=== PATIENT | female | born 1955 | race Caucasian/White ===

== ENCOUNTER 2019-11-08 05:23 | Day surgery (SDC) | payer OTHER ==
[~2019-11-08] VITALS: Ht 162.6 cm; Wt 83.0 kg
[~2019-11-08 05:23] MED LIST: SODIUM CHLORIDE 0.9% 1,000 ML ONE
[2019-11-08] MEDS ORDERED: SODIUM CHLORIDE 0.9% 1,000 ML IV ONE (06:00)
[2019-11-08] MEDS ORDERED: ATOR10TA84 PO (07:00)
[2019-11-08] MEDS ORDERED: [UNRECOGNIZED DRUG - CODE] PO (07:00)
[2019-11-08] MEDS ORDERED: FentaNYL CITRATE-PF 100 MCG/2 ML VIAL ONE (07:19)
[2019-11-08] MEDS ORDERED: MIDAZOLAM HCL 2 MG/2 ML VIAL ONE (07:20)
[2019-11-08] MEDS ORDERED: MIDAZOLAM HCL 5 MG/ML VIAL ONE (07:20)
[2019-11-08] MEDS ORDERED: MethylPREDNISolone SOD SUCC 125 MG/2 ML VIAL IVP ONE (08:15)
[2019-11-08] MEDS ORDERED: MethylPREDNISolone SOD SUCC 125 MG/2 ML VIAL ONE (08:27)
[2019-11-08] MEDS ORDERED: OXYGEN THERAPY IH SCH (20:00)
== END 2019-11-08 09:25 | disposition home or self-care (01) ==
LOC: SURGERY 05:23
PROVIDERS: ATTEND Internal Medicine Critical Care Medicine
DX: R05 Cough (principal); R91.1 Solitary pulmonary nodule; R91.8 Other nonspecific abnormal finding of lung field; J34.89 Other specified disorders of nose and nasal sinuses; J98.8 Other specified respiratory disorders; E78.00 Pure hypercholesterolemia, unspecified; I10 Essential (primary) hypertension; J44.9 Chronic obstructive pulmonary disease, unspecified; Z79.899 Other long term (current) drug therapy; Z90.11 Acquired absence of right breast and nipple; Z96.641 Presence of right artificial hip joint; Z90.49 Acquired absence of other specified parts of digestive tract
CPT/HCPCS: 31623; 31624; 71045; 87070; 87101; 87206; 87220; J2250; J2930; J3010; J7030; 87015; 87205; 88112; 88312

== ENCOUNTER 2020-09-20 05:32 | Day surgery (SDC) | payer OTHER ==
[2020-09-19 12:56] LABS: COVID AG,FIA SOURCE NASOPHARYNGEAL
[~2020-09-20] VITALS: Ht 162.6 cm; Wt 80.9 kg
[~2020-09-20 05:32] MED LIST changes: +ATOR10TA84 PO; +PRIM250T3 PO; -SODIUM CHLORIDE 0.9% 1,000 ML ONE
[2020-09-20] MEDS ORDERED: BENZOCAINE 20% 50 MCG/SPRAY 57 GM TP ONE (05:33)
[2020-09-20] MEDS ORDERED: LIDOCAINE 4% 50 ML SOLUTION TP ONE (05:33)
[2020-09-20] MEDS ORDERED: LIDOCAINE 2% 30 ML JELLY TP ONE (05:33)
[2020-09-20] MEDS ORDERED: ALBUTEROL SULFATE 2.5 MG/0.5 ML NEB SOLUTION NEB ONE (05:33)
[2020-09-20] MEDS ORDERED: SODIUM CHLORIDE 0.9% 1,000 ML ONE (05:45)
[2020-09-20] MEDS ORDERED: PROM6.2514 PO (07:00)
[2020-09-20] MEDS ORDERED: AZIT-104 PO (07:00)
[2020-09-20] MEDS ORDERED: MONT-35 PO (07:00)
[2020-09-20] MEDS ORDERED: SODIUM CHLORIDE 0.9% 1,000 ML IV ONE (07:00)
[2020-09-20] MEDS ORDERED: IBUP-2071 PO (07:00)
[2020-09-20] MEDS ORDERED: PRED10 PO (07:00)
[2020-09-20] MEDS ORDERED: IPRA4AER IH (07:00)
[2020-09-20] MEDS ORDERED: FLUT1BLS IH (07:00)
[2020-09-20] MEDS ORDERED: CHOL500013 PO (07:00)
[2020-09-20] MEDS ORDERED: DOXY-354 PO (07:00)
[2020-09-20] MEDS ORDERED: OMEP20 PO (07:00)
[2020-09-20] MEDS ORDERED: ALBU8.5H8 IH (07:00)
[2020-09-20] MEDS ORDERED: FLUT16H NASAL (07:00)
[2020-09-20] MEDS ORDERED: MIDAZOLAM HCL 2 MG/2 ML VIAL ONE (07:43)
[2020-09-20] MEDS ORDERED: FentaNYL CITRATE PF 100 MCG/2 ML VIAL ONE (07:44)
[2020-09-20] MEDS ORDERED: MethylPREDNISolone SOD SUCC 125 MG/2 ML VIAL ONE (08:56)
[2020-09-20] MEDS ORDERED: MethylPREDNISolone SOD SUCC 125 MG/2 ML VIAL IVP ONE (09:00)
[2020-09-20] MEDS ORDERED: OXYGEN THERAPY IH SCH (20:00)
== END 2020-09-20 10:10 | disposition home or self-care (01) ==
LOC: SURGERY 05:32
PROVIDERS: ATTEND Internal Medicine Critical Care Medicine
DX: B37.0 Candidal stomatitis (principal); J38.4 Edema of larynx; F17.210 Nicotine dependence, cigarettes, uncomplicated; E78.00 Pure hypercholesterolemia, unspecified; G47.30 Sleep apnea, unspecified; Z98.890 Other specified postprocedural states; Z96.641 Presence of right artificial hip joint; Z90.49 Acquired absence of other specified parts of digestive tract
CPT/HCPCS: 31623; 31624; 71045; 87015; 87070; 87101; 87205; 87206; 87220; 87426; 88108; 88184; 88185; 88312; C9803; J2250; J2930; J3010; J7030; J7613; Z7610

== ENCOUNTER 2021-05-19 05:27 | Day surgery (SDC) | payer OTHER ==
[~2021-05-19] VITALS: Ht 162.6 cm; Wt 80.9 kg
[~2021-05-19 05:27] MED LIST changes: +ALBU8.5H8 IH; -ATOR10TA84 PO; +AZIT-104 PO; +CHOL500013 PO; +DOXY-354 PO; +FLUT16H NASAL; +FLUT1BLS IH; +IBUP-2071 PO; +IPRA4AER IH; +MONT-35 PO; +OMEP20 PO; +PRED10 PO; -PRIM250T3 PO; +PROM6.2514 PO
[2021-05-19] MEDS ORDERED: LIDOCAINE 4% 50 ML SOLUTION TP ONE (05:28)
[2021-05-19] MEDS ORDERED: LIDOCAINE 2% 30 ML JELLY TP ONE (05:28)
[2021-05-19] MEDS ORDERED: EPINEPHrine 1:1,000 [1 MG/ML] AMP IM ONE (05:28)
[2021-05-19] MEDS ORDERED: ALBUTEROL SULFATE 2.5 MG/0.5 ML NEB SOLUTION NEB ONE (05:28)
[2021-05-19] MEDS ORDERED: BENZOCAINE 20% 50 MCG/SPRAY 57 GM TP ONE (05:28)
[2021-05-19] MEDS ORDERED: SODIUM CHLORIDE 0.9% 1,000 ML ONE (05:55)
[2021-05-19 06:07] LABS: COVID AG,FIA SOURCE NASOPHARYNGEAL
[2021-05-19] MEDS ORDERED: SODIUM CHLORIDE 0.9% 1,000 ML IV ONE (06:30)
[2021-05-19] MEDS ORDERED: FentaNYL CITRATE PF 100 MCG/2 ML VIAL ONE (06:46)
[2021-05-19] MEDS ORDERED: MIDAZOLAM HCL 5 MG/ML VIAL ONE (06:47)
[2021-05-19] MEDS ORDERED: MethylPREDNISolone SOD SUCC 125 MG/2 ML VIAL ONE (09:44)
[2021-05-19] MEDS ORDERED: MethylPREDNISolone SOD SUCC 125 MG/2 ML VIAL IVP ONE (13:30)
[2021-05-19] MEDS ORDERED: OXYGEN THERAPY IH SCH (20:00)
== END 2021-05-19 15:05 | disposition short-term general hospital (02) ==
LOC: SURGERY 05:27
PROVIDERS: ATTEND Internal Medicine Critical Care Medicine
DX: J38.4 Edema of larynx (principal); B37.0 Candidal stomatitis; E78.00 Pure hypercholesterolemia, unspecified; G40.909 Epilepsy, unspecified, not intractable, without status epilepticus; F17.210 Nicotine dependence, cigarettes, uncomplicated; G47.30 Sleep apnea, unspecified; Z79.899 Other long term (current) drug therapy; Z90.11 Acquired absence of right breast and nipple; Z96.641 Presence of right artificial hip joint; Z90.49 Acquired absence of other specified parts of digestive tract; Z98.890 Other specified postprocedural states
CPT/HCPCS: 31623; 31624; 71045; 87015; 87070; 87101; 87205; 87206; 87220; 87426; 88108; 88184; 88185; 88312; C9803; J0171; J2250; J2930; J3010; J7030; J7613; Z7610